=== PATIENT | male | born 2005 | race Two or more races ===

== ENCOUNTER 2023-10-27 20:28 | Emergency (ER) | payer SELFPAY ==
[~2023-10-27] VITALS: Ht 177.8 cm; Wt 103.0 kg
[2023-10-27 20:49] VITALS: TEMP 98
[2023-10-27 22:30] VITALS: BP 129/93; PULSE 85; RESP 20; O2SAT 97
[2023-10-27] MEDS: GELATIN SPONGE,ABSORBABLE 100 MM TP ONE (23:12)
[2023-10-27] MEDS: PERTUSS(ACELL),DIPH,TET/PF 0.5 ML SYRINGE [ADULT] IM. ONE (23:14)
== END 2023-10-27 23:28 | disposition home or self-care (01) ==
LOC: EMS 20:28
DX: S61.213A Laceration without foreign body of left middle finger without damage to nail, initial encounter (principal); F17.210 Nicotine dependence, cigarettes, uncomplicated; F12.90 Cannabis use, unspecified, uncomplicated; W26.0XXA Contact with knife, initial encounter; Y93.89 Activity, other specified; Y92.89 Other specified places as the place of occurrence of the external cause; Y99.8 Other external cause status
CPT/HCPCS: 90471; 90715; 99283